=== PATIENT | male | born 1955 | race Caucasian/White ===

== ENCOUNTER 2018-11-18 08:13 | Day surgery (SDC) | payer OTHER ==
[~2018-11-18 08:13] MED LIST: SEVOFLURANE 15 MIN
[2018-11-18 09:05] LABS: ADD MAN DIFF? NO
[2018-11-18 09:11] LABS: WHITE BLOOD COUNT 7.7 10^3/ul (4.8-10.8)
[2018-11-18 09:11] LABS: BASOPHILS % 0.4 % (0.0-2.0); EOSINOPHILS # 0.1 10^3/ul (0.0-0.5); EOSINOPHILS % 0.8 % (0.0-7.0); HEMATOCRIT 37.4 % (42.0-52.0); HEMOGLOBIN 11.7 g/dl (14.0-18.0); LYMPHOCYTES # 1.6 10^3/ul (0.8-2.9); LYMPHOCYTES % 20.7 % (15.0-51.0); MEAN CORPUSCULAR HEMOGLOBIN 23.4 pg (29.0-33.0); MEAN CORPUSCULAR HGB CONC 31.3 g/dl (32.0-37.0); MEAN CORPUSCULAR VOLUME 74.8 fl (82.0-101.0); MEAN PLATELET VOLUME 9.7 fl (7.4-10.4); MONOCYTE # 0.4 10^3/ul (0.3-0.9); MONOCYTES % 5.4 % (0.0-11.0); NEUTROPHIL # 5.5 10^3/ul (1.6-7.5); NEUTROPHILS % 71.7 % (39.0-77.0); PLATELET COUNT 208 10^3/UL (140-415); RED CELL DISTRIBUTION WIDTH 15.5 % (11.5-14.5)
[2018-11-18 09:28] LABS: ALANINE AMINOTRANSFERASE 28 IU/L (13-69); ALBUMIN 3.9 g/dl (3.3-4.9); ALBUMIN/GLOBULIN RATIO 1.18; ALKALINE PHOSPHATASE 182 IU/L (42-121); ANION GAP 7 (5-13); ASPARTATE AMINO TRANSFERASE 24 IU/L (15-46); BILIRUBIN,INDIRECT 0.1 mg/dl (0-1.1); BILIRUBIN,TOTAL 0.1 mg/dl (0.2-1.3); BLOOD UREA NITROGEN 16 mg/dl (7-20); CALCIUM 9.1 mg/dl (8.4-10.2); CARBON DIOXIDE 28 mmol/L (21-31); CHLORIDE 101 mmol/L (97-110); CREATININE 0.65 mg/dl (0.61-1.24); Estimated GFR > 60 mL/min (>60); GLUCOSE 260 mg/dl (70-220); SODIUM 136 mmol/L (135-144); TOTAL PROTEIN 7.2 g/dl (6.1-8.1)
[2018-11-18 09:31] LABS: INR 0.93; PARTIAL THROMBOPLASTIN TIME 28.6 Sec (23.0-35.0); PROTIME 12.6 Sec (11.9-14.9)
[2018-11-18 11:25] LABS: ADD UMIC YES; UR ASCORBIC ACID NEGATIVE (NEGATIVE); UR BILIRUBIN (Dip) NEGATIVE (NEGATIVE); UR BLOOD (Dip) NEGATIVE (NEGATIVE); UR CLARITY CLEAR (CLEAR); UR COLOR YELLOW (YELLOW); UR GLUCOSE (Dip) 3+ mg/dL (NEGATIVE); UR KETONES (Dip) TRACE mg/dL (NEGATIVE); UR LEUKOCYTE ESTERASE (Dip) TRACE Leu/ul (NEGATIVE); UR NITRITE (Dip) NEGATIVE (NEGATIVE); UR RBC 4 /HPF (0-5); UR SPECIFIC GRAVITY (Dip) 1.027 (1.003-1.030); UR SQUAMOUS EPITHELIAL CELL FEW /HPF (FEW); UR TOTAL PROTEIN (Dip) 1+ mg/dl (NEGATIVE); UR UROBILINOGEN (Dip) NEGATIVE (NEGATIVE); UR WBC 36 /HPF (0-5)
[2018-11-18] MEDS ORDERED: MIDAZOLAM 1 MG/ML 2 ML INJ (12:48)
[2018-11-18] MEDS ORDERED: FENTAnyl 50 MCG/ML VIAL (12:48)
[2018-11-18] MEDS ORDERED: LIDOCAINE 2% (SDV) 5 ML INJ (13:40)
[2018-11-18] MEDS ORDERED: GLYCOPYRROLATE 0.4 MG INJ (13:40)
[2018-11-18] MEDS ORDERED: ETOMIDATE 20 MG INJ (13:40)
[2018-11-18] MEDS ORDERED: CEFAZOLIN 1 GM INJ (13:40)
[2018-11-18] MEDS ORDERED: NEOSTIGMINE 3 MG/3 ML SYRINGE (13:40)
[2018-11-18] MEDS ORDERED: ROCURONIUM 50 MG INJ (13:40)
[2018-11-18] MEDS ORDERED: HYDROmorphONE 1 MG/5 ML IV SYRINGE IV ×2 (14:00)
[2018-11-18] MEDS ORDERED: FENTAnyl 50 MCG/ML VIAL IV (14:00)
[2018-11-18] MEDS ORDERED: DIPHENHYDRAMINE 50 MG INJ IV (14:00)
[2018-11-18] MEDS ORDERED: LABETALOL HCL 20MG INJ IV (14:00)
[2018-11-18] MEDS ORDERED: hydrALAzine 20 MG INJ IV (14:00)
[2018-11-18] MEDS: MEPERIDINE 25 MG INJ IV (14:11)
[2018-11-18] MEDS: ONDANSETRON 4 MG INJ IV (14:12)
[2018-11-18] MEDS: HYDROCODONE/APAP (5/325) TAB PO (15:24)
== END 2018-11-18 16:04 | disposition home or self-care (01) ==
LOC: SDS 08:13
DX: N35.919 Unspecified urethral stricture, male, unspecified site (principal); I10 Essential (primary) hypertension; E78.5 Hyperlipidemia, unspecified; E11.9 Type 2 diabetes mellitus without complications; G40.909 Epilepsy, unspecified, not intractable, without status epilepticus
CPT/HCPCS: 52276; 71045; 80053; 81001; 82962; 85025; 85610; 85730; 87086; 93005